=== PATIENT | female | born 1955 | race American Indian/Alaskan Native ===

== ENCOUNTER 2018-01-29 06:28 | Day surgery (SDC) | payer MEDICARE ==
[2018-01-29] MEDS ORDERED: WATER FOR IRRIG STERILE IR ONE (07:21)
[2018-01-29] MEDS ORDERED: HURRICAINE ONE 20% TOPICAL SPRAY MM ×2 (07:31→08:44)
--- NOTE | 2018-01-29 07:53 | Anesthesia Consultation ---
Anesthesia Consult and Med Hx Date of service: 01/29/18 - Airway Anesthetic Teeth Evaluation: Poor (multiple missing ) ROM Head & Neck: Adequate Mental/Hyoid Distance: Adequate Mallampati Class: Class I Intubation Access Assessment: Good - Pulmonary Exam CTA: Yes - Cardiac Exam Cardiac Exam: RRR - Pre-Operative Health Status ASA Pre-Surgery Classification: ASA3 Proposed Anesthetic Plan: MAC - Cardiovascular System Hx Hypertension: Yes Hx Heart Attack/AMI: Yes Hx Percutaneous Transluminal Coronary Angioplasty (PTCA): Yes - Central Nervous System CVA: Yes (2015, right side weakness ) Hx Back Pain: Yes (scoliosis ) - Other Systems Hx Obesity: Yes
--- NOTE | 2018-01-29 07:55 | Anesthesia Day of Surgery ---
Anesthesia Day of Surgery - Day of Surgery Patient Examined: Yes Patient H&P Reviewed: Yes Patient is NPO: Yes Beta Blockers: Yes
[2018-01-29] MEDS ORDERED: NACL 0.9% 1000 ML 1,000 ML IV SCH (08:00)
[2018-01-29] MEDS ORDERED: DIPRIVAN 10 MG/ML IV ONE (08:48)
[2018-01-29] MEDS ORDERED: LOPRESSOR IV ONE (08:56)
--- NOTE | 2018-01-29 09:17 | Operative Report ---
Operative Report Operative Report: OPERATIVE REPORT - EGD DATE 01/29/18 SURGERY: Upper endoscopy. SURGEON: Dr. Pete SKYDIVING INSTRUCTOR: Reynaldo Rodgers DO PRE OP DX: Morbid obesity, dyspepsia POST OP DX: duodenal polyp, hiatal hernia TYPE OF ANESTHESIA: MAC. ESTIMATED BLOOD LOSS: None. COMPLICATIONS: None. SPECIMENS REMOVED: duodenal polyp biopsy FINDINGS: 1. hiatal hernia. 2. duodenal polyp 3. normal stomach and esophagus INDICATIONS:INDICATION FOR PROCEDURE: Patient is a 62-year-old female with a long history of morbid obesity. She is planned to have a weight loss procedure and is here for preoperative planning EGD. PROCEDURE DETAILS: After consent was reviewed, patient was taken back to the operating room where patient was placed in the left lateral decubitus position and a bite block was placed in the mouth. After a time-out was called, MAC anesthesia was initiated. I then passed the endoscope into her oropharynx, into her esophagus, visualized the entire esophagus, which was all within normal limits. I then visualized the stomach which showed no abnormalities. The first portion of the duodenum showed a small polyp which was biopsied. I then retroflexed the scope in the stomach and visualized the hiatus and I could see a hiatal hernia. I then desufflated the stomach and removed the endoscope. Patient tolerated procedure well and was transferred to recovery room in good and stable condition.
--- NOTE | 2018-01-29 09:20 | Discharge Summary ---
Providers - Providers Attending physician: MIN KNIGHT Primary care physician: EDIL HAY MD Hospitalization Reason for admission: egd Condition: Good Procedures: egd with biopsy Hospital course: 62 y.o. F with hx of morbid obesity, HTN and hx of stroke presented to the endoscopy for EGD. She tolerated the procedure well and was discharged home the same day. Disposition: DC-01 TO HOME OR SELFCARE Core Measure Documentation - Palliative Care Palliative Care/ Comfort Measures: Not Applicable - Core Measures Any of the following diagnoses?: history only (hx of DVT and stroke ) - VTE Discharge Requirements Deep Vein Thrombosis/Pulmonary Embolism Present on Admission: No Has pt received <5 days of overlap therapy or INR<2.0: No Anticoagulant overlap therapy prescribed at discharge: No Contraindication No Overlap Therapy order at DC: Not Indicated - Stroke Discharge Requirements Statin for LDL = or >70 mg/dl on DC: Not Applicable Exam - Physical Exam Narrative exam: no change from prior - Constitutional Vitals: Temp Pulse Resp BP Pulse Ox 97.9 F 68 12 172/109 97 01/29/18 08:15 01/29/18 08:15 01/29/18 08:15 01/29/18 08:15 01/29/18 08:15 Plan Additional Instructions: Bring cpap machine with you on day of surgery Follow up with: EDIL HAY MD [Primary Care Provider] - 7 Days
[2018-01-29 10:12] VITALS: BP 177/98
[2018-01-29] MEDS ORDERED: HURRICAINE ONE 20% TOPICAL SPRAY MM NR (13:00)
--- NOTE | 2018-01-29 14:08 | Post Anesthesia Evaluation ---
- Post Anesthesia Evaluation Patient Participated: Yes Airway Patent: Yes Stable Respiratory Function: Yes Nausea/Vomiting: No Temp > 96.8F: Yes Pain Manageable: Yes Adequeate Hydration: Yes Anesthesia Complications: No
== END 2018-01-29 06:29 | disposition home or self-care (01) ==
LOC: GIO 06:28
PROVIDERS: ATTEND Specialist
DX: K31.7 Polyp of stomach and duodenum (principal); K44.9 Diaphragmatic hernia without obstruction or gangrene; E66.01 Morbid (severe) obesity due to excess calories; I10 Essential (primary) hypertension; I25.2 Old myocardial infarction; I69.951 Hemiplegia and hemiparesis following unspecified cerebrovascular disease affecting right dominant side; Z88.0 Allergy status to penicillin; Z68.42 Body mass index [BMI] 45.0-49.9, adult
CPT/HCPCS: 43239; 88305; J2704; J7030